=== PATIENT | female | born 2000 | race Caucasian/White ===

== ENCOUNTER 2024-08-03 13:11 | Emergency (ER) | payer OTHER, SELFPAY ==
[2024-08-03 13:13] VITALS: BP 122/87
[2024-08-03 13:48] VITALS: BMI 20.4
--- NOTE | 2024-08-03 13:54 | ED.GENMED ---
History of Present Illness
General
Chief Complaint: Skin Surface Trauma
Source: patient
Exam Limitations: none
Time Seen by Provider: 08/03/24 13:48
Nursing documentation reviewed up to this point in time: agreed with
History of Present Illness
History of Present Illness:
The patient is a 24-year-old female who presents the emergency department with laceration to her left fourth finger occurring just prior to arrival. The patient was doing dishes when she accidentally dropped a knife and attempted to catch it,
resulting in a cut to her finger. She reports pain and some very mild tingling in distal aspect of affected finger. Upon visual inspection, she immediately decided to seek medical attention due to the perceived depth and severity of the cut.
Patient denies any other associated injuries.
The patient confirmed that her last tetanus immunization was within the past five years.
Review of Systems
Review of Systems
Allergies reviewed?: Yes
All Other Systems: ROS reviewed and negative except as documented in HPI and ROS
Phy Exam
Physical Exam
Physical Exam:
Vitals: Patient's vital signs are stable. Afebrile
General: Patient is well appearing, no acute distress
Skin: Approximately 1.5 cm v-shaped laceration to radial aspect of left fourth finger just below PIP joint.
Head: Normocephalic, atraumatic
Throat: Protecting airway
Neck: Normal ROM, no cervical spine tenderness
Cardiac: Regular rate
Pulm: No apparent respiratory distress
Abdomen: Nondistended
Extremities: Laceration to left fourth finger as described above. Patient has full ROM in affected finger against resistance in MCP, PIP, and DP joints. Sensation intact
Neuro: Grossly intact
Psychiatric: Normal affect.
Course
Vital Signs
Initial and Last Documented VS:
Initial Vital Signs
Temp Pulse Resp BP Pulse Ox
98.4 F 80 20 122/87 100
08/03/24 13:13 08/03/24 13:13 08/03/24 13:13 08/03/24 13:13 08/03/24 13:13
Last Documented Vital Signs
Temp Pulse Resp BP Pulse Ox
98.4 F 80 20 122/87 100
08/03/24 13:13 08/03/24 13:13 08/03/24 13:13 08/03/24 13:13 08/03/24 13:13
Procedures
Laceration Closure
Left Fourth Finger(s):
Status of Wound: clean
Size of Wound in cm: 1.5
Description of Wound Edges: sharp
Preparation: cleaned with saline and cleaned with Betadine
Anesthesia: 1% Lidocaine and Digital-Regional
Revision/Debridement: routine- no revision
Wound exploration: explored to base- no FB
Type of Closure: single layer closure and interrupted sutures
Skin Closure Material: 5-0 nylon
Number of sutures: 3
MDM/Problems Addressed
Differential Diagnosis Includes:
Not limited to: laceration, tendon injury, nerve injury, etc
MDM/Problems Addressed:
A 24-year-old female presented to the emergency department with a laceration on her left ring finger sustained while handling a knife during dishwashing. The laceration was approximately 1.5 cm, V-shaped, on the radial aspect of the finger below the
PIP joint, with no tendon involvement or neurovascular compromise. The patient had a full range of motion in the affected digit. Tetanus shot up to date. The diagnosis necessitated primary closure with sutures. Verbal consent obtained by patient.
The wound area was anesthetized using a digital block with 1% plain lidocaine. Following anesthesia, the wound was irrigated with normal saline and cleansed with Betadine. The laceration was closed using three 5-0 nylon simple interrupted sutures,
achieving excellent hemostasis. Patient tolerated procedure well.
Patient was provided with wound care instructions, including the importance of keeping the area clean and signs of infection to watch for. The need to return for suture removal in 10 to 14 days, either with primary care, urgent care, or back to the
emergency department, was emphasized. She was also encouraged to return if there were any concerns or signs of infection.
Chronic conditions affecting care:
N/A
Acute Exacerbation and/or Progression of Chronic Illness:
N/A
*Pulse Oximetry
Patient hypoxic: no (100% on RA)
*EKG
Interpreted by ED Provider?: NA
*Licensed Prosthetist Interpretation
Rate: Licensed Prosthetist- N/A
*Critical Care Note
Total Time (30-74mins, 75-104mins- exclusive of procedures): Not Applicable
ED Attending Note
-
Portions of this chart may have been created with voice recognition software.� Occasional wrong word or��sound alike� substitutions may have occurred due to the inherent limitations of voice recognition software.
Discharge Plan
Departure
Patient Disposition: Home (Routine Discharge)
Date of Disposition: 08/03/24
Time of Disposition: 14:40
Patient with high blood pressure during this ER visit?: No
Condition: Good
Discharge Problem:
Laceration of finger
Instructions: Wound Care (DC), Laceration Repair With Stitches (DC)
Referrals:
UNKNOWN - PT DOES,NOT KNOW [Family Provider]
Activity Restrictions/Additional Instructions:
RETURN TO THE EMERGENCY DEPARTMENT ANY NUMBNESS/TINGLING AFFECTED FINGER OR ANY SIGNS OF INFECTION INCLUDING FEVERS, CHILLS, SIGNIFICANT PAIN, SWELLING OR REDNESS, PUS DRAINAGE, OR ANY OTHER CONCERNS
- As discussed�your laceration was closed with 3 sutures today in the emergency department. These will need to be removed in 10 to 14 days. This can be done at primary care, urgent care, or emergency department. Keep wound clean and dry until
sutures are removed. Keep wound covered and wear finger splint until sutures are removed. You can apply small amount of topical antibiotic to the area.
- You can take Tylenol and/or Motrin as needed for pain.
Monitor your symptoms closely and return to the emergency department with any acute worsening/new symptoms or any signs of infection
Interventions
Interventions:
*Risk Screen - Suicide Last Done: 08/03/24 13:13
*General Assessment Last Done: 08/03/24 13:13
*Neglect/Abuse Screening Last Done: 08/03/24 13:49
*ED- Fall Risk Assessment Last Done: 08/03/24 13:48
*ED COVID-19 Vaccine History Last Done: 08/03/24 13:48
*Nursing Disposition Last Done: 08/03/24 14:57
ED-Skin Assessment Last Done: 08/03/24 13:48
Discharge Date and Time
Discharge Date/Time: 08/03/24 14:58
Print Language: SWEDISH
== END 2024-08-03 14:58 | disposition home or self-care (01) ==
LOC: EMR 13:11
PROVIDERS: EMERGENCY PHYSICIAN Emergency Medicine
DX: S61.215A Laceration without foreign body of left ring finger without damage to nail, initial encounter (principal); W26.0XXA Contact with knife, initial encounter
CPT/HCPCS: 12001; 99282